=== PATIENT | male | born 1985 | race African-American/Black ===

== ENCOUNTER 2017-03-05 20:43 | Emergency (ER) | payer OTHER ==
[~2017-03-05] VITALS: Ht 180.3 cm; Wt 86.2 kg
[2017-03-05] MEDS ORDERED: THERAFLU EXP245.5 M1 PO (20:46)
[2017-03-05] MEDS ORDERED: PREDNISONE 20 M20 MG PO (23:04)
[2017-03-05] MEDS ORDERED: VENTOLIN HFA 1818 GM INH (23:04)
== END 2017-03-05 23:27 | disposition home or self-care (01) ==
LOC: ER 20:43
DX: J40 Bronchitis, not specified as acute or chronic (principal); F17.210 Nicotine dependence, cigarettes, uncomplicated